=== PATIENT | female | born 1955 | race Caucasian/White ===

== ENCOUNTER → 2016-05-22 | Outpatient (CLI) | payer BC ==
--- NOTE | 2016-05-22 17:53 | MA ---
Screening Digital Mammogram With iCAD Indication: Routine screening. Technique: Standard cephalocaudal and mediolateral oblique projections are obtained. This examinati on is processed by the iCAD computer-aided detection system. Comparison: October 2014, August 2013 and March 2011 Breast density: Type B. Findings: CAD was reviewed. No suspicious microcalcifications, mass, or architectural distortion. Impression: Negative mammogram BI-RADS: 1 - Negative Recommendation: Routine screening is recommended in one year. [facility] will send a result letter to the patient. Negative mammography should not preclude additional workup of a clinically suspicious finding. The patient's information is entered into a reminder system with a target due date for her next mammo gram.
== END ==
LOC: BRMIMAGING 14:30
PROVIDERS: ATTEND Physician Assistant Medical
DX: Z12.31 Encounter for screening mammogram for malignant neoplasm of breast (principal)
CPT/HCPCS: G0202

== ENCOUNTER → 2017-07-16 | Outpatient (CLI) | payer OTHER | LOC: BRMIMAGING 14:32 | PROVIDERS: ATTEND Physician Assistant Medical | DX: Z12.31 Encounter for screening mammogram for malignant neoplasm of breast (principal) ==

== ENCOUNTER → 2018-09-19 | Outpatient (CLI) | payer OTHER | LOC: BRMIMAGING 13:35 ==